=== PATIENT | female | born 1985 | race Caucasian/White ===

== ENCOUNTER → 2016-12-26 | Outpatient (CLI) | payer BC, OTHER ==
--- NOTE | 2016-12-27 07:17 | REP ---
SUPINE ABDOMEN: 12/26/2016 CLINICAL HISTORY: Hematuria, unspecified. COMPARISON: CT abdomen and pelvis 10/19/2015. FINDINGS: KUB shows a dextrorotatory curvature of the lumbar spine centered at L3. There is degenerative disc change and facet arthropathy at L5-S1. IUD is seen centrally in the pelvis. Stool and gas scattered in the colon. I do not see dilated loops. No abnormal soft tissue calcifications are noted over the renal fossae or expected course of the ureters. Bones intact. IMPRESSION: 1. Nonspecific gas pattern. No visible stone, mass or obstruction. Incidental note of an IUD in place and some degenerative changes with a dextrorotatory curve of the lumbar spine. Signed by Ralph Villarreal MD 12/27/2016 04:20 P
== END ==
LOC: M WUC 16:52
PROVIDERS: ATTEND Physician Assistant
DX: R31.9 Hematuria, unspecified (principal); Z97.5 Presence of (intrauterine) contraceptive device; M51.36 Other intervertebral disc degeneration, lumbar region

== ENCOUNTER → 2017-01-05 | Outpatient (REF) | payer OTHER | LOC: M LAB REF 14:11 | PROVIDERS: ATTEND Physician Assistant | DX: J02.9 Acute pharyngitis, unspecified (principal) ==

== ENCOUNTER → 2017-10-08 | Outpatient (CLI) | payer OTHER | LOC: M WUC 12:16 | PROVIDERS: ATTEND Advanced Practice Midwife | DX: Z34.81 Encounter for supervision of other normal pregnancy, first trimester (principal) ==

== ENCOUNTER → 2017-10-16 | Outpatient (CLI) | payer BC, OTHER ==
--- NOTE | 2017-10-16 20:33 | REP ---
Clinical: Anatomical evaluation. Comparison: None . Findings: Examination demonstrates a single live intrauterine in breech presentation. motion is identified by technologist. Placenta is noted anteriorly and grade zero without evidence for placenta previa or abruption. Amniotic fluid volume is normal. Cervix measures 4.0 cm in length and appears closed. No evidence for nuchal cord. Gestational age by current measurements 18 weeks 6 days with VELVET 03/13/2018 . FHR equals 150 beats per minute. BPD 4.2 cm 18 weeks 4 days HC 15.7 cm 18 weeks 4 days AC 13.7 cm 19 weeks 1 day FL 3.0 cm 19 weeks 3 days HL 2.8 cm 19 weeks 1 day HC/AC ratio 1.15 Estimated weight 277 grams ( 60th percentile). Anatomical assessment demonstrates normal structures including cranium, choroid plexus, cavum, cerebellum/posterior fossa, facial features, lungs, four-chamber heart/ventricular outflow tracts, diaphragm, stomach, cord insertion/three-vessel cord, kidneys/bladder, spine, and extremities. Impression: Single live intrauterine in breech presentation demonstrating normal anatomical assessment. No gross abnormalities are identified. Signed by Nahum Fisher MD 10/16/2017 05:24 P
== END ==
LOC: M SMT 08:46
PROVIDERS: ATTEND Advanced Practice Midwife
DX: Z34.82 Encounter for supervision of other normal pregnancy, second trimester (principal); Z3A.18 18 weeks gestation of pregnancy

== ENCOUNTER → 2017-12-19 | Outpatient (CLI) | payer BC, OTHER ==
[2017-12-19 13:59] LABS: GLUCOSE CHALLENGE TEST 1 HOUR 137 MG/DL (LESS THAN 140)
[2017-12-19 14:02] LABS: HEMATOCRIT 32.1 % (36.0-47.0); HEMOGLOBIN 10.4 g/dl (12.0-16.0); MEAN CORPUSCULAR HEMOGLOBIN 28.2 pg (27.0-33.0); MEAN CORPUSCULAR HGB CONC 32.4 g/dl (32.0-36.5); PLATELET COUNT, AUTOMATED 236 10^3/uL (150-450); RED BLOOD COUNT 3.69 10^6/uL (4.00-5.40); RED CELL DISTRIBUTION WIDTH 13.2 % (11.5-14.5); WHITE BLOOD COUNT 9.1 10^3/uL (4.0-10.0)
== END ==
LOC: M SMT 08:01
DX: Z34.02 Encounter for supervision of normal first pregnancy, second trimester (principal)
CPT/HCPCS: 82950

== ENCOUNTER → 2017-12-31 | Outpatient (CLI) | payer BC, OTHER ==
[2017-12-31 08:52] LABS: GLUCOSE, FASTING 82 MG/DL (LESS THAN 95)
[2017-12-31 09:51] LABS: 1 HR GLUCOSE 151 MG/DL (LESS THAN 180)
[2017-12-31 11:19] LABS: 2 HR GLUCOSE 125 MG/DL (LESS THAN 155)
[2017-12-31 12:12] LABS: 3 HR GLUCOSE 130 MG/DL (LESS THAN 140)
== END ==
LOC: M LAB 08:12
DX: R73.02 Impaired glucose tolerance (oral) (principal)

== ENCOUNTER → 2018-02-14 | Outpatient (REF) | payer BC, OTHER | LOC: M LAB REF 16:49 | DX: Z34.83 Encounter for supervision of other normal pregnancy, third trimester (principal) | CPT/HCPCS: 87081 ==

== ENCOUNTER → 2018-02-27 | Outpatient (CLI) | payer BC, OTHER | LOC: M SMT 09:58 | DX: O36.63X0 Maternal care for excessive fetal growth, third trimester, not applicable or unspecified (principal); Z3A.37 37 weeks gestation of pregnancy | CPT/HCPCS: 76816 ==

== ENCOUNTER 2018-03-23 07:37 | Inpatient (IN) | payer BC, OTHER ==
[2018-03-23 10:21] LABS: HEMATOCRIT 30.4 % (36.0-47.0); HEMOGLOBIN 9.5 g/dl (12.0-15.5); MEAN CORPUSCULAR HEMOGLOBIN 23.8 pg (27.0-33.0); MEAN CORPUSCULAR HGB CONC 31.3 g/dl (32.0-36.5); PLATELET COUNT, AUTOMATED 256 10^3/uL (150-450); RED CELL DISTRIBUTION WIDTH 16.1 % (11.5-14.5); WHITE BLOOD COUNT 8.9 10^3/uL (4.0-10.0)
[2018-03-23] MEDS ORDERED: OXYTOCIN 30 UNITS IN 0.9% NaCl 500ML IV BAG (J2590) As Ordered (10:25)
[2018-03-23] MEDS: LACTATED RINGER'S 1000 ML IV (10:40)
[2018-03-23] MEDS: OXYTOCIN DRIP 30 UNITS in APPROPRIATE DILUENT 1 EA IV ×2 (10:40→16:00)
[2018-03-23] MEDS: LR 1,000 ML IV ×2 (10:41→15:40)
[2018-03-23] MEDS ORDERED: FENTANYL 2MCG/ML ROPIVACAINE 0.2% IN 0.9% NACL 200ML IVBAG As Ordered (14:26)
[2018-03-23 15:28] LABS: CORD GAS ABE A -8.2; CORD GAS ABE V -7.7; CORD GAS HCO3 A 16.2 MEQ/L; CORD GAS HCO3 V 16.8 MEQ/L; CORD GAS O2 SAT A 76.7 %; CORD GAS O2 SAT V 76.6 %; CORD GAS PCO2 A 30.9 mmHg; CORD GAS PCO2 V 31.8 mmHg; CORD GAS PH A 7.338 UNITS; CORD GAS PO2 A 35.8 mmHg; CORD GAS PO2 V 34.6 mmHg; CORD GAS SBC A 17.5 MEQ/L; CORD GAS SBC V 17.9 MEQ/L; CORD GAS TCO2 A 17.2 MEQ/L; CORD GAS TCO2 V 17.7 MEQ/L
[2018-03-23] MEDS ORDERED: DOCUSATE SODIUM 100 MG CAP PO (15:45)
[2018-03-23] MEDS ORDERED: PROMETHAZINE 25 MG TAB PO (15:45)
[2018-03-23] MEDS ORDERED: ACETAMINOPHEN 500 MG TAB PO (15:45)
[2018-03-23] MEDS ORDERED: ONDANSETRON 4MG/2ML VIAL (J2405) IV (15:45)
[2018-03-23] MEDS ORDERED: DIBUCAINE 1% OINTMENT 30GM TOP (15:45)
[2018-03-23] MEDS ORDERED: IBUPROFEN 800 MG TAB PO (15:45)
[2018-03-23] MEDS: RHOGAM 300 MCG (1500 IU) INJ (J2790) IM (17:48)
[2018-03-23] MEDS: MEASLES,MUMPS,RUBELLA VACCINE INJ (MMR-II) (90707) SC (17:48)
[2018-03-24] MEDS: LR 1,000 ML IV ×3 (07:15→15:56)
[2018-03-24] MEDS: PRENATAL VITAMINS CHEWABLE TABLET PO (09:18)
== END 2018-03-24 18:26 | disposition home or self-care (01) | DRG 560 ==
LOC: M LDI 07:37 → M OBS 17:57
PROVIDERS: Obstetrics & Gynecology
PROC: 10E0XZZ Delivery of Products of Conception, External Approach (ICD-10-PCS; principal; 2018-03-23)
PROC: 0KQM0ZZ Repair Perineum Muscle, Open Approach (ICD-10-PCS; 2018-03-23)
DX: O48.0 Post-term pregnancy (principal); O77.0 Labor and delivery complicated by meconium in amniotic fluid; Z37.0 Single live birth; Z3A.41 41 weeks gestation of pregnancy; O69.81X0 Labor and delivery complicated by cord around neck, without compression, not applicable or unspecified; O70.1 Second degree perineal laceration during delivery

== ENCOUNTER → 2018-05-22 | Outpatient (REF) | payer OTHER ==
[2018-05-22 21:06] LABS: CHLAMYDIA DNA AMPLIFICATION NEGATIVE (NEGATIVE); GC DNA AMPLIFICATION NEGATIVE (NEGATIVE)
== END ==
LOC: M LAB REF 17:01
DX: Z30.430 Encounter for insertion of intrauterine contraceptive device (principal)

== ENCOUNTER → 2021-06-23 | Outpatient (REF) | payer OTHER ==
[~2021-06-23] MED LIST: IBUP-1114 PO; MAPA500T2 PO; PRENTAB9 PO
== END ==
LOC: M LAB REF 13:07
PROVIDERS: ATTEND Nurse Practitioner Family
DX: J02.9 Acute pharyngitis, unspecified (principal)

== ENCOUNTER → 2022-01-10 | Outpatient (CLI) | payer BC, OTHER ==
[~2022-01-10] MED LIST changes: +ISOVUE-370 76% 100ML VIAL As Ordered ONE
== END ==
LOC: M RAD 15:46
PROVIDERS: ATTEND Nurse Practitioner Family
DX: R93.421 Abnormal radiologic findings on diagnostic imaging of right kidney (principal); N13.30 Unspecified hydronephrosis; K76.89 Other specified diseases of liver; N85.4 Malposition of uterus; Z97.5 Presence of (intrauterine) contraceptive device; M54.50 Low back pain, unspecified; R35.0 Frequency of micturition
CPT/HCPCS: 74178; 87086; Q9967

== ENCOUNTER → 2023-01-18 | Outpatient (CLI) | payer BC, OTHER ==
[~2023-01-18] MED LIST changes: -ISOVUE-370 76% 100ML VIAL As Ordered ONE
== END ==
LOC: M WUC 13:12
PROVIDERS: ATTEND Nurse Practitioner Family
DX: J20.9 Acute bronchitis, unspecified (principal); R05.1 Acute cough